=== PATIENT | female | born 2000 | race Hispanic/Latino ===

== ENCOUNTER 2023-12-14 10:03 | Emergency (ER) | payer OTHER ==
[~2023-12-14] VITALS: Ht 160 cm; Wt 64.4 kg
[2023-12-14 10:06] VITALS: BP 131/85; PULSE 90; RESP 18
[2023-12-14] MEDS: NEOMY SULF/BACITRA/POLYMYXIN B 1 EACH PACKET TP ONE (10:24)
[2023-12-14] MEDS: ACETAMINOPHEN 500 MG TABLET PO ONE (10:24)
== END 2023-12-14 10:40 | disposition home or self-care (01) ==
LOC: EDH 10:03
DX: S00.81XA Abrasion of other part of head, initial encounter (principal); S00.31XA Abrasion of nose, initial encounter; X58.XXXA Exposure to other specified factors, initial encounter; Y93.89 Activity, other specified; Y92.89 Other specified places as the place of occurrence of the external cause; Y99.8 Other external cause status